=== PATIENT | female | born 1935 | race Caucasian/White ===

== ENCOUNTER 2021-07-20 18:08 | Emergency (ER) | payer OTHER ==
[~2021-07-20] VITALS: Ht 157.5 cm; Wt 49.0 kg
--- NOTE | ~2021-07-20 | H ---
[address] [address] HISTORY AND PHYSICAL Name: MELQUIADESELISEO Room: [address] IN ..#: [id number] Admission: 07/20/21 Attend Phys: Mona Turpin Discharge: 07/21/21 Date of : 39 Report #: [id number] THIS REPORT FOR: cc: FAM - No family physician/PCP FAM - No family physician/PCP [facility],Medical Records Staff ~ For History and Physical please refer to the emergency room note in the patient's medical record. By: 1037Medical Records Staff [facility] /BRAIN
--- NOTE | ~2021-07-20 | EMS ---
[address] [place] [address] EMS Patient Care Report Name: SANGEETA GUARDADO Room: [address] IN ..#: [id number] Admission: 07/20/21 Attend Phys: Mona Turpin Discharge: 07/21/21 Date of : 39 Report #: [id number] THIS REPORT FOR: //name// Report Transmitted: 08/02/2021 13:10 EMS Care Summary [facility]Y Incident [id number] @ 07/20/2021 17:19 Incident Location [address] [place] [address] Patient Sangeeta Guardado Female, 85 Years 1935 Patient Address [address] [place] [address] Patient History Pathological fracture, not elsewhere classified,Tobacco use,Atrial Fibrillation, Patient Allergies , Chief Complaint Edema Disposition Transported No Lights/[place] Dispatch Reason Sick Person Transported To [facility] Narrative RAMSEY 319 ARRIVED ON SCENE FOR AN 85 YO FEMALE WHOS DAUGHTER CALLED STATING THAT HER LEGS HAVE BEEN SWOLLEN ALL DAY AND SHE WOULD LIKE TO BE TAKEN TO THE ER. UPON ARRIVAL [facility] MADE CONTACT WITH THE PATIENT TO FIND AN ALERT AND ORIENTED FEMALE PATIENT. THE PATIENT DENIED ANY HISTORY OF CHF OR PAST EDEMA AND STATED THAT SHE NOTICED HER LEGS SWELLING WITH LITTLE TO NO PAIN IN THE MORNING. THE PATIENT REQUESTED TO BE TAKEN BY AMBULANCE HER DAUGHTER [address] [place] [address] EMS Patient Care Report Name: SANGEETA GUARDADO Room: [address] IN .R.#: [id number] Admission: 07/20/21 Attend Phys: Mona Turpin Discharge: 07/21/21 Date of : 39 Report #: [id number] EXPRESSED THAT SHE WAS NOT COMFORTABLE TAKING HER AND REQUESTED TO GO TO [place] DESPITE HER HIGH VOLUME STATUS. [facility] ASSISTED THE patient IN WALKING TO OUR COT WHERE SHE WAS SEATED AND COVERED WITH A BLANKET AND THEN PROPERLY SECURED. THE COT WAS THEN TAKEN TO THE AMBULANCE WHERE IT WAS LOADED INSIDE. history AND vitals WERE TAKEN AND transport BEGAN. transport REMAINED UNEVENTFUL AND THE PATIENT RESTED COMFORTABLY WITH NO COMPLAINTS. UPON ARRIVAL TO [place] THE COT WITH THE PATIENT STILL PROPERLY SECURED WAS UNLOADED FROM THE AMBULANCE AND TAKEN INSIDE. THE PATIENT WAS DIRECTED TO TRIAGE WHERE SHE WAS ASSISTED OFF OF THE COT AND INTO THE INTAKE ROOM. CARE WAS TRANSFERRED TO HER NURSE AND [facility] WAS CLEANED AND RETURNED TO THE [facility] TO RETURN TO SERVICE. Initial Vitals @17:44SpO2: 94, @17:38P: 42,R: 16,BP: 153/97, @17:54P: 70,R: 16,BP: 162/84, @17:38GCS: 15, @17:54GCS: 15, @17:26 Assessments @17:26MENTAL:SKIN:HEENT:LUNG SOUNDS:ABDOMEN:PELVIS//GI:EXTREMITIES:PULSE:NEURO: Impression General symptoms Timeline 08:00,Call Received 17:19,Dispatch Notified 17:19,Psap Call 17:19,Dispatched 17:19,En Route 17:24,On Scene 17:26,At Patient 17:26,BP: / M,PULSE: ,RR: R,SPO2: Ox,ETCO2: ,BG: ,PAIN: ,GCS: , 17:38,BP: 153/97 M,PULSE: 42,RR: 16 R,SPO2: Ox,ETCO2: ,BG: ,PAIN: ,GCS: , 17:38,BP: / M,PULSE: ,RR: R,SPO2: Ox,ETCO2: ,BG: ,PAIN: ,GCS: 15, 17:38,Depart Scene 17:44,BP: / M,PULSE: ,RR: R,SPO2: 94 Ox,ETCO2: ,BG: ,PAIN: ,GCS: , 17:54,BP: 162/84 M,PULSE: 70,RR: 16 R,SPO2: Ox,ETCO2: ,BG: ,PAIN: ,GCS: , 17:54,BP: / M,PULSE: ,RR: R,SPO2: Ox,ETCO2: ,BG: ,PAIN: ,GCS: 15, 17:57,At Destination 18:15,[place] [address] EMS Patient Care Report Name: SANGEETA GUARDADO Room: [address] IN M.R.#: [id number] Admission: 07/20/21 Attend Phys: Mona Turpin Discharge: 07/21/21 Date of : 39 Report #: [id number] Disclaimer v1.1 Copyright 202 [employer] This EMS Care Summary contains data elements from the applicable legal record (which may be displayed differently). It is designed to provide pertinent information for the following purposes: continuity of care, clinical quality, and state data reporting. The complete legal record is available to ED staff and administrators of the receiving hospital in [email or web address] Patient [employer]. All data is provided "as is."
[2021-07-20 18:11] VITALS: BP 148/81
[2021-07-20 21:17] LABS: CALCIUM 8.9 mg/dL (8.5-10.1); CREATININE 0.6 mg/dL (0.6-1.3); POTASSIUM 3.2 mmol/L (3.5-5.1)
[2021-07-20 21:29] LABS: ALBUMIN 3.5 g/dL (3.4-5.0); TOTAL BILIRUBIN 1.9 mg/dL (<0.1-1.0); TOTAL PROTEIN 6.9 g/dL (6.4-8.2)
[2021-07-20 21:30] LABS: ABSOLUTE LYMPHOCYTES 0.7 thou/uL (0.8-5.3); ABSOLUTE MONOCYTES 0.6 thou/uL (0.0-1.2); BASOPHILS 0.3 %; EOSINOPHILS 0.2 %; HEMATOCRIT 44.1 % (37.0-47.0); HEMOGLOBIN 14.5 gm/dL (12.0-15.0); LYMPHOCYTES 11.2 %; MCH 32.3 pg (26.0-34.0); MCHC 32.8 g/dL (28.0-37.0); MCV 98.5 fL (80.0-100.0); MONOCYTES 9.5 %; MPV 9.1 fl. (7.2-11.1); NUCLEATED RBCS 0 /100WBC; PLATELET COUNT* 148 thou/uL (150-400); POLYS 78.8 %; RBC 4.48 mil/uL (4.20-5.00); RDW-CV 14.6 % (10.5-14.5); WBC 6.3 thou/uL (4.0-11.0)
[2021-07-20 22:45] LABS: URINE BILIRUBIN NEGATIVE (Negative); URINE BLOOD NEGATIVE (Negative); URINE CLARITY CLEAR; URINE COLOR YELLOW; URINE GLUCOSE-RANDOM NEGATIVE (Negative); URINE KETONES NEGATIVE (Negative); URINE LEUKOCYTES-REFLEX NEGATIVE (Negative); URINE NITRITE-REFLEX NEGATIVE (Negative); URINE PROTEIN NEGATIVE (Negative); URINE SPECIFIC GRAVITY 1.015 (1.005-1.030); URINE UROBILINOGEN 0.2 E.U./dl (0.2-1.0)
--- NOTE | 2021-07-21 02:15 | NUR ---
APPROX 0036 PT STARTED SPEAKING UNINTELLIGIBLE WORDS. NOTIFIED AND SAW PATIENT. SEE ORDERS. UNABLE TO REACH PTS DAUGHTER CLAUDIO AT THAT TIME. AFTER CT, ATTEMPTED TO CALL AGAIN AND WAS ABLE TO REACH HER. SHE STATES THAT HER MOTHER HAS NEVER HAD EPISODES LIKE THIS BEFORE. SHE STATES HER MOTHER IS NOT ON BLOOD THINNERS AND ONLY TAKES ONE PILL AND THAT IS FOR HER HEART. SHE DOES NOT KNOW WHAT THAT PILL IS.
[2021-07-21] MEDS ORDERED: XANAX 0.5 MG0.5 M1 PO (02:19)
[2021-07-21 02:43] LABS: PROTIME 10.3 Seconds (9.20-11.50)
[2021-07-21 05:25] VITALS: BP 141/84
--- NOTE | 2021-07-23 13:07 | EKG ---
[place] [address] ELECTROCARDIOGRAM REPORT Name: ELISEO ARNETT Room: [address] IN ..#: [id number] Admission: 07/20/21 Attend Phys: Kayla Pitt Discharge: 07/21/21 Date of : 39 Date of Service: 07/20/212011 Report #: [id number] THIS REPORT FOR: //name// [facility] ED Test Date: 2021-07-20 Test Time: 20:12:40 Pat Name: ELISEO ARNETT Department: Room: [facility] Gender: F Support Services Specialist: : 1935 Requested By: Katarina Montelongo Order Number: [id number] MD: Daljit Dubose Measurements Intervals [place] Rate: 92 P: NE: QRS: 2 QRSD: 96 T: 41 QT: 385 QTc: 477 Interpretive Statements Atrial fibrillation Ventricular premature complex Possible left ventricular hypertrophy Borderline prolonged QT interval No previous ECG available for comparison Electronically Signed On 07-23-2021 13:07:19 POUNCER by Daljit Dubose [email or web address] <ELECTRONICALLY SIGNED> By: Daljit Dubose MD, FACC 07/23/21 1307 11 11 Daljit Dubose MD, FAC /EPI
== END 2021-07-21 05:27 | disposition admitted as inpatient to this hospital (09) ==
LOC: M.ERS 18:08 → M.TBA-ER 21:58
PROVIDERS: Emergency Medicine; Student in an Organized Health Care Education/Training Program
DX: E87.6 Hypokalemia (principal); Z20.822 Contact with and (suspected) exposure to COVID-19; J90 Pleural effusion, not elsewhere classified; R60.9 Edema, unspecified; I48.91 Unspecified atrial fibrillation; Z79.899 Other long term (current) drug therapy; Z88.0 Allergy status to penicillin